=== PATIENT | male | born 1980 | race Caucasian/White ===

== ENCOUNTER 2017-02-27 07:40 | Outpatient (CLI) | payer OTHER | END 2017-02-27 07:41 | disposition home or self-care (01) | LOC: DI 07:40 | PROVIDERS: ATTEND Otolaryngology | DX: Z53.9 Procedure and treatment not carried out, unspecified reason (principal) ==

== ENCOUNTER 2017-04-27 09:40 | Outpatient (CLI) | payer OTHER ==
[2017-04-27] MEDS ORDERED: GADOBUTROL 10 MMOL/10 ML VIAL IVP ONE (12:37)
--- NOTE | 2017-04-27 13:39 | MRI Report ---
EXAM: MRI BRAIN AND INTERNAL AUDITORY CANAL (IAC) EXAM DATE: 04/27/2017 12:48 PM. 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 COMPARISON: None. TECHNIQUE: Multiplanar, multisequence T1-weighted and fluid-sensitive MRI sequences of the brain and IACs were performed. Other: None. IV Contrast: Without and with 8.5 mL Gadavist. FINDINGS: Brain Volume: Normal for age. Parenchyma/Dura: No masses, infarcts, or hemorrhage. No white matter lesions identified. Internal Auditory Canals (IACs): Normal. No cranial nerve lesion or inflammatory process identified. Ventricles/Cisterns: Normal. No hydrocephalus. Sinuses: Normal. Bones: Normal. Other: None. IMPRESSION: Normal brain and IAC MRI. [facility] Referring Provider Line: [phone] SITE ID: [id number]
== END 2017-04-27 09:41 | disposition home or self-care (01) ==
LOC: DI 09:40
PROVIDERS: ATTEND Otolaryngology
DX: H90.5 Unspecified sensorineural hearing loss (principal)
CPT/HCPCS: 70543